=== PATIENT | female | born 1990 | race Caucasian/White ===

== ENCOUNTER 2017-03-27 23:01 | Emergency (ER) | payer SELFPAY | END 2017-03-27 23:59 | disposition left against medical advice (07) | LOC: ER 23:01 | DX: Z53.21 Procedure and treatment not carried out due to patient leaving prior to being seen by health care provider (principal) ==

== ENCOUNTER 2017-03-28 20:49 | Emergency (ER) | payer MEDICAID ==
--- NOTE | 2017-04-02 07:33 | ER ---
ADMIT: 03/28/2017 RM/LOC: ER [facility] MR#: [id number] [id number] YAIR T[place] [address] Emergency Room Report SEX: F AGE: 26 : 1990 DATE: 03/28/2017 TIME: 2049 hours. Please refer to my T-sheet for complete H and P. HISTORY OF PRESENT ILLNESS: Briefly, the patient comes in with toothache. She actually saw a dentist today, it has been hurting her for 8 days, she has put her on penicillin and hydrocodone. Says it is still hurting very severe, she would like something to help improve her left lower. PHYSICAL EXAMINATION: HEENT: Her throat is clear. TMs clear on her left ear. She has severe dental caries and a bad tooth with erythema around it, posterior left lower molar. EMERGENCY DEPARTMENT COURSE: I did a nerve block, inferior mandibular nerve on the left. She had vast improvement, was ready for discharge. ASSESSMENT: Toothache and dental caries. PLAN: Follow up with dentist on Saturday. Return if worse. Continue meds. Dipak Eldridge MD/ jamar JOB #: [id number] CC: Dipak Eldridge MD, Attending Physician Dc French MD, Family Physician
== END 2017-03-28 21:15 | disposition home or self-care (01) ==
LOC: ER 20:49
PROC: 3E0T3BZ Introduction of Anesthetic Agent into Peripheral Nerves and Plexi, Percutaneous Approach (ICD-10-PCS; principal; 2017-03-28)
DX: K02.9 Dental caries, unspecified (principal)